=== PATIENT | male | born 1960 | race Caucasian/White ===

== ENCOUNTER 2020-11-08 20:32 | Emergency (ER) | payer OTHER ==
[2020-11-08] MEDS ORDERED: HYDROmorphone 1 MG/ML CARPUJECT IVP STA (20:55)
--- NOTE | 2020-11-08 20:58 | ED Physician Documentation ---
History of Present Illness - Stated complaint Stated Complaint: RT LEG INJ - Chief complaint Chief Complaint: Trauma Ext - Additonal information Additional information: 60-year-old male presents to the emergency department with acute right lower leg pain. He stepped off a bridge curb of about 5 to 6 inches slipped and twisted his leg. He has significant swelling without deformity of the right lower leg. Distal DP pulse is present. No history of previous injury to this leg. This gentleman denies any pertinent past medical history. No hypertension diabetes. Occasional smoker. Takes no routinely prescribed medications. Review of Systems Constitutional: reports: Reviewed and negative Ears: reports: Reviewed and negative Nose: reports: Reviewed and negative Throat: reports: Reviewed and negative Cardiac: reports: Reviewed and negative Respiratory: reports: Reviewed and negative GI: reports: Reviewed and negative : reports: Reviewed and negative Skin: reports: Reviewed and negative Musculoskeletal: reports: Extremity pain (right lower leg), Joint swelling (right lower leg) Neurologic: reports: Reviewed and negative PD PAST MEDICAL HISTORY - Past Medical History Past Medical History: Yes Cardiovascular: Hypertension - Past Surgical History General: Appendectomy, Other HEENT: Tonsil/Adenoidectomy - Present Medications Home Medications: Ambulatory Orders Medication Instructions Recorded Confirmed Oxycodone HCl/Acetaminophen 1 - 2 each PO Q6H PRN #14 tablet 11/08/20 [Percocet 5-325 mg Tablet] - Allergies Allergies/Adverse Reactions: Allergies Allergy/AdvReac Type Severity Reaction Status Date / Time No Known Drug Allergies Allergy Verified 11/08/20 20:34 - Social History Does the pt smoke?: No Smoking Status: Never smoker Does the pt drink ETOH?: Yes Does the pt have substance abuse?: No Substance Use and Type: Marijuana - Immunizations Immunizations are current?: No - POLST Patient has POLST: No PD ED PE EXPANDED - General General: Alert, In Pain - Cardiac Cardiac: Regular Rate, Radial strong equal, Pedal strong equal, Cap refill < 2 sec - Respiratory Respiratory: Clear to ausultation rene. No: Distress, Labored - Abdomen Abdomen: No: Tender to palpation - Extremities Extremities: Right leg (Significant swelling and ecchymosis of the right lower leg just above the bilateral malleolus. Significant laxity of the foot and ankle above the malleolous. 2+ DP pulse) Results - Vitals Vitals: Vital Signs - 24 hr 11/08/20 11/08/20 20:35 20:39 Temperature 37.2 C 37.2 C Heart Rate 90 90 Respiratory 16 16 Rate Blood Pressure 176/97 H 176/97 H O2 Saturation 99 99 Oxygen O2 Source Room air - Labs Labs: Laboratory Tests 11/08/20 11/08/20 21:00 21:00 WBC 11.1 H RBC 4.93 Hgb 14.9 Hct 44.4 MCV 90.1 MCH 30.2 MCHC 33.6 RDW 13.2 Plt Count 350 MPV 9.1 Neut # (Auto) 6.8 H Lymph # (Auto) 3.1 [place] # (Auto) 0.7 Eos # (Auto) 0.4 Baso # (Auto) 0.1 Absolute Nucleated RBC 0.00 Nucleated RBC % 0.0 Sodium 138 Potassium 3.2 L Chloride 100 L Carbon Dioxide 26 Anion Gap 12.0 BUN 14 Creatinine 1.1 Estimated GFR (MDRD) 69 L Glucose 108 H Calcium 9.2 Total Bilirubin 0.4 AST 31 ALT 33 Alkaline Phosphatase 76 Total Protein 8.0 Albumin 4.6 Globulin 3.4 Albumin/Globulin Ratio 1.4 Lipase 31 PD MEDICAL DECISION MAKING - ED course Complexity details: reviewed results, re-evaluated patient, d/w patient ED course: 60 -year-old male presents the emergency department with acute right leg injury. Unfortunately x-ray does show that he is got a nondisplaced right trimalleolar fracture. This case was discussed with on-call orthopedic Dr. Mccann. Kayleigh ent is placed in a 3 sided short leg splint. Post splinting he does have good perfusion and a warm foot. This gentleman was given a Percocet prepack as well as a prescription for Percocet to be filled tomorrow. He was advised to be nonweightbearing with the crutches. Patient is to call the orthopedic office tomorrow in the a.m. for prompt follow-up likely tomorrow or early Thursday. Emergent and worrisome return precautions for concerns of infection or compartment syndrome were discussed at length with the patient. Departure - Departure Disposition: 01 Home, Self Care Clinical Impression: Trimalleolar fracture of ankle, closed Qualifiers: Encounter type: initial encounter Laterality: right Qualified Code(s): S82.851A - Displaced trimalleolar fracture of right lower leg, initial encounter for closed fracture Condition: Stable Record reviewed to determine appropriate education?: Yes Instructions: Ankle Fx Follow-Up: [facility] [Provider Group] Prescriptions: Oxycodone HCl/Acetaminophen [Percocet 5-325 mg Tablet] 1 - 2 each PO Q6H PRN #14 tablet PRN Reason: pain Comments: The x-ray of your lower right leg shows that you do have what is called a trimalleolar fracture. This fracture will typically always require surgery though it does not need to be done tonight. You are to call the orthopedic office in [place] tomorrow morning at 8 AM in order to be seen with Dr. Hernandez. His goal is to see you Thursday or Thursday in office. If at any point you develop numbness or tingling in your toes develop a fever or have a cool foot please return to the ER to have your splint reevaluated. The splint cannot get wet, if it does get wet return to the ER to have it replaced. You arre to be 100% non weight bearing on the right leg. use the crutches at all times We have prescribed you some Percocet to help with pain control. Use sparingly as it can be addictive. It also will cause constipation. I recommend you increase your water intake as well as begin taking MiraLAX if you fail to have a bowel movement after 1 or [address] if taking Percocet it can legally intoxicated you and impair your ability to operate a vehicle.
[2020-11-08 21:07] LABS: BASOPHILS # (AUTO) 0.1 10^3/uL (0.0-0.1); BASOPHILS % (AUTO) 0.5 %; EOSINOPHILS # (AUTO) 0.4 10^3/uL (0.0-0.7); EOSINOPHILS % (AUTO) 3.6 %; HGB - HEMOGLOBIN 14.9 g/dL (14.0-18.0); LYMPHOCYTES # (AUTO) 3.1 10^3/uL (1.5-3.5); LYMPHOCYTES % (AUTO) 27.8 %; MEAN CORPUSCULAR HEMOGLOBIN 30.2 pg (27.0-31.0); MEAN CORPUSCULAR HGB CONC 33.6 g/dL (32.0-36.0); MEAN CORPUSCULAR VOLUME 90.1 fL (80.0-94.0); MEAN PLATELET VOLUME 9.1 fL (7.4-11.4); MONOCYTES # (AUTO) 0.7 10^3/uL (0.0-1.0); MONOCYTES % (AUTO) 6.6 %; NEUTROPHILS # (AUTO) 6.8 10^3/uL (1.5-6.6); NEUTROPHILS % (AUTO) 61.1 %; PLT - PLATELET COUNT 350 10^3/uL (130-450); RED BLOOD COUNT 4.93 10^6/uL (4.70-6.10); RED CELL DISTRIBUTION WIDTH 13.2 % (12.0-15.0); WHITE BLOOD COUNT 11.1 x10^3/uL (4.8-10.8)
[2020-11-08 21:22] LABS: ALBUMIN 4.6 g/dL (3.2-5.5); ALBUMIN/GLOBULIN RATIO 1.4 (1.0-2.2); BILIRUBIN,TOTAL 0.4 mg/dL (0.2-1.0); CALCIUM 9.2 mg/dL (8.5-10.3); CREATININE 1.1 mg/dL (0.6-1.2)
[2020-11-08] MEDS ORDERED: oxyCODONE/ACET 5/325 Prepack 4 PO STA (21:33)
--- NOTE | 2020-11-08 21:53 | XRAY Report ---
PROCEDURE: Ankle 3 View RT INDICATIONS: Fall; r/o fx TECHNIQUE: 3 views of the ankle were acquired. COMPARISON: None FINDINGS: Bones: Trimalleolar fracture involving the right ankle with oblique fracture of the distal fibula, tr ansverse fracture of the medial malleolus, and vertical fracture through the posterior malleolus. Ank le mortise demonstrates mild widening of the medial ankle gutter. There is overlying soft tissue swel ling. No suspicious bony lesions. Soft tissues: No tibiotalar joint effusion. Achilles tendon appears normal. IMPRESSION: Trimalleolar fracture with mild widening of the medial ankle mortise. Reviewed by: Kar Tavares MD on 11/08/2020 9:51 PM PST Approved by: Kar Tavares MD on 11/08/2020 9:51 PM PST Station ID: [id number]
[2020-11-08 22:23] VITALS: BP 152/82
== END 2020-11-08 22:21 | disposition home or self-care (01) ==
LOC: ED 20:32
DX: S82.854A Nondisplaced trimalleolar fracture of right lower leg, initial encounter for closed fracture (principal); X50.1XXA Overexertion from prolonged static or awkward postures, initial encounter; Y93.01 Activity, walking, marching and hiking; I10 Essential (primary) hypertension
CPT/HCPCS: 36415; 73610; 80053; 83690; 85025; 96374; 99283; 99284; J1170

== ENCOUNTER 2020-11-09 11:53 | Outpatient (CLI) | payer OTHER | END 2020-11-09 23:59 | disposition home or self-care (01) | LOC: LAB.R 11:53 | PROVIDERS: ATTEND Orthopaedic Surgery | DX: Z01.812 Encounter for preprocedural laboratory examination (principal); Z20.828 Contact with and (suspected) exposure to other viral communicable diseases ==

== ENCOUNTER 2020-11-14 10:54 | Day surgery (SDC) | payer OTHER ==
[~2020-11-14 10:54] MED LIST: ACETAMINOPHEN 1,000 MG/100 ML 100 ML IV ONE; CELECOXIB 100 MG CAPSULE PO ONE; ceFAZolin 2 GM/50 ML 2 GM/50 ML BAG IV ONE
[2020-11-14] MEDS ORDERED: LACTATED RINGERS 1,000 ML IV ONE ×2 (11:13→15:08)
[2020-11-14] MEDS ORDERED: MIDAZOLAM 2 MG/2 ML VIAL ONE (11:26)
[2020-11-14] MEDS ORDERED: fentaNYL 100 MCG/2 ML VIAL ONE (11:26)
[2020-11-14] MEDS ORDERED: PROPOFOL 200 MG/20 ML VIAL IVP ONE (11:27)
[2020-11-14] MEDS ORDERED: PROPOFOL 500 MG/50 ML 500 MG/50 ML VIAL ONE (11:28)
--- NOTE | 2020-11-14 11:50 | ANESTHESIA ---
Pre-Anesthesia VS, & Labs - Diagnosis ankle fracture - Procedure ORIF right ankle Vital Signs: Temp Pulse Resp BP Pulse Ox 36.2 C L 79 16 196/91 H 99 11/14/20 11:00 11/14/20 11:00 11/14/20 11:00 11/14/20 11:00 11/14/20 11:00 Height: 6 ft Weight (kg): 84.4 kg Body Mass Index: 25.2 BMI Classification: Overweight - NPO >8 hours - Lab Results Current Lab Results: Laboratory Tests 11/14/20 11:22: POC Whole Bld Glucose 94 Home Medications and Allergies Home Medications: Ambulatory Orders Docusate Sodium [Dulcolax Stool Softener] 200 mg PO BID 11/12/20 Docusate Sodium [Dulcolax Stool Softener] 200 mg PO BID 11/12/20 Allergies/Adverse Reactions: Allergies Allergy/AdvReac Type Severity Reaction Status Date / Time No Known Drug Allergies Allergy Verified 11/08/20 20:34 Anes History & Medical History - Anesthetic History Anesthesia Complications: reports: No previous complications - Medical History Cardiovascular: reports: Hypertension Pulmonary: reports: Sleep apnea, CPAP use Gastrointestinal: reports: None Urinary: reports: None Musculoskeletal: reports: None Skin: reports: Psoriasis, Other Smoking Status: Never smoker Psychosocial: reports: Cannabis (occasional) - Surgical History General: Appendectomy, Colonoscopy, Other Eyes Ears Nose Throat (EENT): Tonsil/Adenoidectomy Dermatologic: Skin cancer surgery Exam General: Alert Dental: WNL Mouth Opening: Greater than 4 Fingerbreadths Neck Mobility: Normal Mallampati classification: II Respiratory: Lungs clear Cardiovascular: Regular rate Mental/Cognitive Status: Alert/Oriented X3 Plan Anesthesia Type: General, Popliteal Block Consent for Procedure(s) Verified and Reviewed: Yes Code Status: Attempt Resuscitation ASA classification: 2-Mild systemic disease Is this case an emergency?: No
[2020-11-14] MEDS ORDERED: ONDANSETRON 4 MG/2 ML VIAL IVP PRN (11:51)
[2020-11-14] MEDS ORDERED: MORPHINE 2 MG/ML CARPUJECT IVP PRN (11:51)
[2020-11-14] MEDS ORDERED: fentaNYL 100 MCG/2 ML VIAL IVP PRN (11:51)
[2020-11-14] MEDS ORDERED: NALOXONE 0.4 MG/ML VIAL IVP PRN (11:51)
[2020-11-14] MEDS ORDERED: ATROPINE ABBOJECT 1 MG/10 ML SYRINGE IVP PRN (11:51)
[2020-11-14] MEDS ORDERED: HYDROmorphone 0.5 MG/0.5 ML SYRINGE IVP PRN (11:51)
[2020-11-14] MEDS ORDERED: ePHEDrine 50 MG/ML VIAL IVP PRN (11:51)
[2020-11-14] MEDS ORDERED: METOCLOPRAMIDE 10 MG/2 ML VIAL IVP PRN (11:51)
[2020-11-14] MEDS ORDERED: LACTATED RINGERS 1,000 ML IV SCH (12:00)
[2020-11-14] MEDS ORDERED: DEXAMETHASONE 10 MG/ML VIAL ONE (12:30)
[2020-11-14] MEDS ORDERED: KETOROLAC 30 MG/ML VIAL ONE (12:31)
[2020-11-14] MEDS ORDERED: KETAMINE 500 MG/10 ML VIAL ONE (14:00)
[2020-11-14] MEDS ORDERED: BACITRACIN ZINC OINT 14 GM TOP ONE (14:16)
[2020-11-14] MEDS ORDERED: BACITRACIN ZINC OINT 1 PACKET TOP ONE (14:22)
[2020-11-14] MEDS ORDERED: METOPROLOL 5 MG/5 ML VIAL IVP ONE (14:44)
[2020-11-14] MEDS ORDERED: HYDROcod/ACETAM 5/325 MG TABLET PO PRN (14:56)
[2020-11-14] MEDS ORDERED: HYDROcod/ACETAM 10 MG/325 MG TABLET PO PRN (14:56)
[2020-11-14] MEDS ORDERED: KETOROLAC 15 MG/ML VIAL IVP STA (14:56)
--- NOTE | 2020-11-14 14:59 | OPERATIVE REPORT ---
Operative Report - General Procedure Date: 11/14/20 Pre-Op Diagnosis: Displaced trimalleolar fracture right ankle Procedure Performed: Open reduction internal fixation medial and lateral malleolar I right ankle Post Op Diagnosis: Same as preoperative diagnosis - Procedure Note Primary Surgeon: Alvarez Mccann MD Secondary Surgeon: Federico AMAYA Anesthesia Provider: Jannet Wallace CRNA Anesthesia Technique: General ET tube, Regional block Estimated Blood Loss (mL): 25 Indications: 60-year-old man with a recent fall and twist to left ankle sustaining a closed, displaced trimalleolar fracture of his left ankle. He had isolated injury to left ankle with positive physical findings and radiographic. He has had routine x-rays and a CT scan. He has a transverse fracture of the medial malleolus at the joint line, old Bleich fracture of the lateral malleolus beginning at the ankle mortise and extending proximally and a small posterolateral posterior malleolus fracture left ankle. Findings: Displaced, unstable ankle mortise secondary to trimalleolar fracture left ankle. There is no obvious intra-articular abnormality noted through the medial arthrotomy. He did have a transverse fracture of the medial malleolus at the joint line. The fracture of the lateral malleolus began at the joint line extended proximally, long oblique fracture. The posterior malleolus fracture was a vertical fracture, relatively small and involve the posterolateral aspect of the posterior tibia Complications: None noted - Other Other Information/Narrative: After satisfactory anesthesia had been achieved, patient was placed in a supine position with a bolster beneath the right buttock to facilitate internal rotation of the right leg. A pneumatic tourniquet had been applied to the proxi mal right thigh over cast padding. The right lower extremity was prepped and draped in a sterile manner in the usual fashion with a padded bolster beneath the right leg. The C arm image intensifier was draped with a sterile drape and was used intermittently for biplanar imaging during the procedure. A timeout procedure was performed by the entire operating room team and all were in agreement. The right leg was exsanguinated with a rubber bandage. The pneumatic tourniquet was elevated 250 mmHg. The lateral ankle was approached first with a longitudinal incision over the posterior edge of the distal fibula and lateral malleolus. There is a fracture was mildly comminuted, long oblique fracture. The fracture was reduced with plantar flexion and internal rotation with the ankle being placed over a bolster to facilitate traction. A small bone clamp was applied to the fracture and a transfixing intramedullary K wire was inserted to help stabilize the fracture. The fracture seemed to have anatomic reduction. The [employer] posterior lateral 7 hole plate was applied to the fracture. Care was taken to protect the peroneal tendons as the plate was applied posteriorly in the distal part of the fracture and more laterally proximally. Cortical screws were inserted and seemed to have good purchase. A long intramedullary screw was inserted from the tip of the lateral malleolus and this measured approximately 65 mm. This intramedullary screw transfix the fracture site as well. A second incision was made over the medial malleolus. This was a longitudinal incision made anteromedially with care to protect the saphenous vein. A medial arthrotomy was performed. The fracture ends were clearly visualized and cleaned with a bone curette. The ankle mortise could be visualized. The fracture was reduced and temporarily held with a bone clamp. The pointed bone clamp was secured proximal to the fracture site through a small drill hole and distally as well. 2 K wires were inserted for cannulated screw fixation of the medial malleolus. These 2 screws were inserted and well seated. These 2 cancellous screws acted as lag screws and provided very good fixation to the medial malleolus. Intraoperative x-rays show good alignment of the ankle mortise. The stability of the syndesmosis was tested with a bone clamp and the external rotation stress test. There is no sign of abnormal laxity to the syndesmosis and therefore no formal fixation to the syndesmosis was performed. The posterior malleolus fracture fragment seemed to reduce anatomically with reduction of the medial and lateral malleoli. The tourniquet was deflated after 85 minutes. There was good return of circulation. Hemostasis was achieved electrocautery. The subcutaneous tissue was closed with 2-0 Vicryl to both incisions. Both incisions were closed with stainless steel trey. Bacitracin, Xeroform, sterile gauze, thick cotton and a sugar tong plaster splint was applied and secured with Juvenal wraps. The ankle was placed in neutral dorsiflexion. He received 2 g of Ancef intravenously and tolerated the procedure well. A physician assistant baseball coach was utilized to help retract, protect vital structures then to facilitate reduction of fractures.
--- NOTE | 2020-11-14 15:12 | ANESTHESIA POST OP EVALUATION ---
Anesthesia Post Eval - Post Anesthesia Eval Vitals: Last Vital Signs Temp 36.4 C L 11/14/20 14:48 Pulse 75 11/14/20 15:10 Resp 12 11/14/20 15:10 BP 158/96 H 11/14/20 15:10 Pulse Ox 97 11/14/20 15:10 CV Function Including HR & BP: positive: Stable Pain Control: positive: Satisfactory Nausea & Vomiting: positive: Negative Mental Status: positive: Baseline Respiratory Status: Airway Patent Hydration Status: Satisfactory Anesthesia Complications: positive: None (awake, alert, pleased with care.)
[2020-11-14] MEDS ORDERED: oxyCODONE 5 MG TABLET ONE (15:36)
[2020-11-14 15:46] VITALS: BP 151/84
--- NOTE | 2020-11-14 16:53 | XRAY Report ---
PROCEDURE: OR C-Arm Procedure INDICATIONS: orif right ankle TECHNIQUE: Single intraoperative image was provided for evaluation. COMPARISON: X-ray ankle 11/08/2020 FINDINGS: There has been ORIF of both the medial malleolus as well as distal fibula. There is good anatomic ali gnment and hardware appears intact. It is noted posterior malleoli or fracture was identified on x-ra y, although not as well appreciated on current exam on AP view. IMPRESSION: Bimalleolar fixation with posterior malleoli or fracture not well appreciated on AP image. Reviewed by: Rachel Moreno MD on 11/14/2020 4:51 PM PST Approved by: Rachel Moreno MD on 11/14/2020 4:51 PM PST Station ID: [id number]
== END 2020-11-14 10:55 | disposition home or self-care (01) ==
LOC: SDS 10:54
PROVIDERS: ATTEND Orthopaedic Surgery
DX: S82.851A Displaced trimalleolar fracture of right lower leg, initial encounter for closed fracture (principal); I10 Essential (primary) hypertension; G47.30 Sleep apnea, unspecified
CPT/HCPCS: 27822; A9270; C1713; J0131; J0690; J7120

== ENCOUNTER 2020-12-08 11:20 | Outpatient (CLI) | payer OTHER ==
[2020-12-08 13:33] LABS: BASOPHILS # (AUTO) 0.1 10^3/uL (0.0-0.1); BASOPHILS % (AUTO) 0.4 %; EOSINOPHILS # (AUTO) 0.3 10^3/uL (0.0-0.7); EOSINOPHILS % (AUTO) 2.3 %; HGB - HEMOGLOBIN 14.3 g/dL (14.0-18.0); LYMPHOCYTES % (AUTO) 15.4 %; MEAN CORPUSCULAR HEMOGLOBIN 29.6 pg (27.0-31.0); MEAN CORPUSCULAR HGB CONC 32.9 g/dL (32.0-36.0); MEAN CORPUSCULAR VOLUME 89.9 fL (80.0-94.0); MEAN PLATELET VOLUME 10.1 fL (7.4-11.4); MONOCYTES # (AUTO) 1.1 10^3/uL (0.0-1.0); MONOCYTES % (AUTO) 8.4 %; NEUTROPHILS # (AUTO) 9.5 10^3/uL (1.5-6.6); NEUTROPHILS % (AUTO) 73.1 %; PLT - PLATELET COUNT 428 10^3/uL (130-450); RED BLOOD COUNT 4.83 10^6/uL (4.70-6.10); RED CELL DISTRIBUTION WIDTH 13.2 % (12.0-15.0)
== END 2020-12-08 23:59 | disposition home or self-care (01) ==
LOC: LAB.N 11:20
PROVIDERS: ATTEND Physician Assistant Medical
DX: T81.49XA Infection following a procedure, other surgical site, initial encounter (principal); Z48.89 Encounter for other specified surgical aftercare
CPT/HCPCS: 36415; 85025; 87070; 87181; 87205

== ENCOUNTER 2020-12-27 15:46 | Outpatient (CLI) | payer OTHER ==
--- NOTE | 2020-12-27 17:14 | XRAY Report ---
PROCEDURE: Ankle 3 View RT INDICATIONS: FRACTURE OF RIGHT LOWER LEG TECHNIQUE: 3 views of the ankle were acquired. COMPARISON: 11/14/2020 and 11/08/2020 FINDINGS: Bones: Post-ORIF changes in distal fibular shaft, and medial malleolus are seen. Ankle alignment is a natomic. No gross hardware loosening or failure. Healing distal fibular shaft and medial malleolus fr actures are noted. No new fracture or dislocation. Ankle mortise is normally aligned. No suspicious bony lesions. Soft tissues: No tibiotalar joint effusion. Achilles tendon appears normal. IMPRESSION: Stable and anatomic ankle alignment. No gross hardware complication. No new fracture or dislocation. Reviewed by: Dipesh Richard MD on 12/27/2020 5:13 PM PST Approved by: Dipesh Richard MD on 12/27/2020 5:13 PM PST Station ID: [id number]
== END 2020-12-27 23:59 | disposition home or self-care (01) ==
LOC: DI.N 15:46
PROVIDERS: ATTEND Physician Assistant
DX: S82.831D Other fracture of upper and lower end of right fibula, subsequent encounter for closed fracture with routine healing (principal); S82.51XD Displaced fracture of medial malleolus of right tibia, subsequent encounter for closed fracture with routine healing

== ENCOUNTER 2021-02-11 08:00 | Outpatient (CLI) | payer OTHER ==
--- NOTE | 2021-02-11 15:32 | XRAY Report ---
PROCEDURE: Ankle 3 View RT INDICATIONS: TRIMALLEOLAR FRACTURE RIGHT LOWER LEG TECHNIQUE: 3 views of the ankle were acquired. COMPARISON: 12/27/2020 plain films FINDINGS: Bones: No fractures or dislocations. ORIF hardware within the distal tibia and fibula is present, a s before. Ankle mortise is normally aligned. No suspicious bony lesions. Soft tissues: No tibiotalar joint effusion. Achilles tendon appears normal. IMPRESSION: Postsurgical sequelae. Reviewed by: Jericho Escobar MD on 02/11/2021 3:31 PM PDT Approved by: Jericho Escobar MD on 02/11/2021 3:31 PM PDT Station ID: [id number]
== END 2021-02-11 23:59 | disposition home or self-care (01) ==
LOC: DI.N 08:00
PROVIDERS: ATTEND Orthopaedic Surgery
DX: S82.851D Displaced trimalleolar fracture of right lower leg, subsequent encounter for closed fracture with routine healing (principal)

== ENCOUNTER 2021-02-21 17:32 | Observation (INO) | payer OTHER ==
[2021-02-21] MEDS ORDERED: ONDANSETRON 4 MG/2 ML VIAL IVP PRN (17:40)
[2021-02-21] MEDS ORDERED: ACETAMINOPHEN 325 MG TABLET PO PRN (17:40)
[2021-02-21] MEDS ORDERED: SODIUM CHLORIDE FLUSH 0.9% 10 ML SYRINGE IVP PRN (17:40)
[2021-02-21] MEDS ORDERED: HYDROmorphone 1 MG/ML CARPUJECT IVP PRN (17:49)
[2021-02-21] MEDS ORDERED: oxyCODONE 5 MG TABLET PO PRN (17:49)
[2021-02-21] MEDS ORDERED: ceFAZolin 1 GM VIAL IVP SCH (18:00)
[2021-02-21 18:01] LABS: BASOPHILS # (AUTO) 0.1 10^3/uL (0.0-0.1); BASOPHILS % (AUTO) 0.8 %; EOSINOPHILS # (AUTO) 0.5 10^3/uL (0.0-0.7); EOSINOPHILS % (AUTO) 5.4 %; HCT - HEMATOCRIT 43.7 % (42.0-52.0); HGB - HEMOGLOBIN 14.5 g/dL (14.0-18.0); LYMPHOCYTES # (AUTO) 2.9 10^3/uL (1.5-3.5); LYMPHOCYTES % (AUTO) 28.7 %; MEAN CORPUSCULAR HEMOGLOBIN 29.4 pg (27.0-31.0); MEAN CORPUSCULAR HGB CONC 33.2 g/dL (32.0-36.0); MEAN CORPUSCULAR VOLUME 88.5 fL (80.0-94.0); MEAN PLATELET VOLUME 9.1 fL (7.4-11.4); MONOCYTES # (AUTO) 0.8 10^3/uL (0.0-1.0); MONOCYTES % (AUTO) 8.4 %; NEUTROPHILS # (AUTO) 5.6 10^3/uL (1.5-6.6); NEUTROPHILS % (AUTO) 56.3 %; PLT - PLATELET COUNT 408 10^3/uL (130-450); RED BLOOD COUNT 4.94 10^6/uL (4.70-6.10); RED CELL DISTRIBUTION WIDTH 13.6 % (12.0-15.0)
--- NOTE | 2021-02-21 18:01 | HISTORY & PHYSICAL EXAMINATION ---
HPI - Admitted From Admitted from: Direct admit - History Obtained From Records Reviewed: Other (discussed with Dr. Scotty Brice) History obtained from: Patient Exam limitations: No limitations - History of Present Illness Severity at the worst: reports: Mild, Moderate HPI Comment/Other: This is a 60-year-old man who sustained a closed, displaced trimalleolar frac ture of the right ankle in October 2020. His surgery was performed on 11/14/2020 within a week of injury. His surgery was performed at [facility] and involve open reduction internal fixation of both medial and lateral malleolar I of his right ankle. On the delayed basis, he developed some pressure and wound breakdown while in his boot over the lateral malleolar area distal to his plate. This has been treated with local wound care and has improved over the past couple of months but has resulted in small superficial sinus tracts along the plate more proximally and this is occurred within the past couple of weeks. The distal wound has healed; he had a wound VAC for short period time but most of the treatment has been in the wound clinic with Dr. Brice. His pain is minimal. He has no fever or chills but over the past few days he has noticed some mild redness and swelling. Drainage has been minimal over the superficial appearing wounds lateral right ankle but are directly over his previous surgical site where he had plate fixation of the distal right fibula and lateral malleolar area. The medial incision is healing very well and is had no signs of wound breakdown or infection. He is ambulating, full weightbearing on his right ankle. He does have stiffness to the right ankle. He has no history of diabetes, is a non-smoker. He has had a history of some skin problems in the past with dermatitis.He had a culture of the his wound on 02/14/[address] Brice and it was positive for Staph aureus, methicillin sensitive. Over the past few days he has been on Keflex PMH/PSH - Past Medical History Cardiovascular: positive: Hypertension Respiratory: positive: Sleep apnea, CPAP use GI: positive: None : positive: None HEENT: positive: Chronic vision loss Psych: positive: None Musculoskeletal: positive: None Derm: positive: Psoriasis, Other MRSA Hx?: No - Past Surgical History General: positive: Appendectomy, Colonoscopy, Other HEENT: positive: Tonsil/Adenoidectomy Derm: positive: Skin cancer surgery Social & Family Hx - Social History Does the pt smoke?: No Smoking Status: Never smoker Does the pt drink ETOH?: Yes Does the pt have substance abuse?: No - POLST Patient has POLST: No Meds/Allgy - Home Medications Home Medications: Ambulatory Orders Medication Instructions Recorded Confirmed Oxycodone HCl/Acetaminophen 1 - 2 each PO Q6H PRN #14 tablet 11/08/20 11/12/20 [Percocet 5-325 mg Tablet] Docusate Sodium [Dulcolax Stool 200 mg PO BID 11/12/20 11/12/20 Softener] oxyCODONE [Roxicodone] 5 mg PO Q4-6H #30 tablet 11/14/20 cephALEXin [Keflex] 500 mg PO TID 7 Days #21 cap 02/18/21 - Allergies Allergies/Adverse Reactions: Allergies Allergy/AdvReac Type Severity Reaction Status Date / Time No Known Drug Allergies Allergy Verified 11/08/20 20:34 Exam - Physical Exam General Appearance: positive: No acute distress Eyes Bilateral: positive: Normal inspection ENT: positive: ENT inspection nml Respiratory: positive: No respiratory distress Cardiovascular: positive: Regular rate & rhythm Peripheral Pulses: positive: 2+ Abdomen: positive: Non-tender Skin: positive: Warm, Dry Extremities: negative: Other (Right ankle shows mild swelling over the lateral ankle, mild redness about the lateral ankle, no tenderness or deformity. He does have some stiffness to his right ankle. The skin over the four separate 3mm sinuses that overlie the plate over fibula; no pus or drainage. No sign of abscess.) Neurologic/Psychiatric: positive: Oriented x3, Motor nml, Sensation nml Results - Diagnostic Imaging Results Diagnostic Imaging Results: negative: Read independently (I reviewed his last set of x-rays dated 02/12/2020 one of the right ankle. His trimalleolar fracture of the right ankle is healed and the internal fixation appears normal. The tibiotalar joint is maintained. The alignment of the right ankle looks good.) Impression/Plan - Problem List Problem List: 1. Infection associated with fibular plate right ankle; This is most likely related to wound healing problems. 2. Status post open reduction internal fixation trimalleolar fracture of right ankle Plan the patient's right ankle fracture is clinically and radiographically healed. However one of the incision is showing infection and inflammatory reaction about his fibular plate. The plan is admission under observation, elevation, intravenous antibiotics, plate removal from right fibula tomorrow. The plan is to discharge him to home following surgery. I have discussed the risk, goals and likelihood of achieving goals, alternatives to surgery, disability. There is a potential for persistent infection but removal of the plate should markedly help. He does not demonstrate signs of medial malleolar infection or infection about the tibiotalar joint. He is in agreement to the surgery and has signed informed consent. He will be admitted tonight and comanaged with our hospitalist
[2021-02-21 18:12] LABS: ALBUMIN 4.3 g/dL (3.2-5.5); ALBUMIN/GLOBULIN RATIO 1.2 (1.0-2.2); BILIRUBIN,TOTAL 0.3 mg/dL (0.2-1.0); CALCIUM 9.6 mg/dL (8.5-10.3); CREATININE 0.9 mg/dL (0.6-1.2); MAGNESIUM 2.4 mg/dL (1.7-2.8); POTASSIUM 4.5 mmol/L (3.5-5.0)
--- NOTE | 2021-02-21 18:13 | XRAY Report ---
PROCEDURE: Chest 1 View X-Ray INDICATIONS: Pre-op eval TECHNIQUE: 2 frontal views of the chest acquired. COMPARISON: None. FINDINGS: Surgical changes and devices: None. Lungs and pleura: No pleural effusions or pneumothorax. Lungs are clear. Mediastinum: Mediastinal contours appear normal. Heart size is normal. Bones and chest wall: No suspicious bony lesions. Overlying soft tissues appear unremarkable. IMPRESSION: No acute cardiopulmonary abnormality. Reviewed by: Javid Milan MD on 02/21/2021 5:12 PM AKDT Approved by: Javid Milan MD on 02/21/2021 5:12 PM AKDT Station ID: [id number]
--- NOTE | 2021-02-21 19:41 | HISTORY & PHYSICAL EXAMINATION ---
Chief Complaint - Chief Complaint Chief Complaint: right ankle surgical site redness and drain (plate infection) History of Present Illness - Admitted From Admitted From:: [facility] [place] - History Obtained From Records Reviewed: yes History obtained from: patient - History of Present Illness HPI Comment/Other: 60-year-old male with medical history significant for obstructive sleep apnea on CPAP and insomnia who presented as a direct admit [place] [facility] [place] with redness and drainage from a right ankle surgical wound site. Patient underwent right malleoli ankle fracture repair in October [address] Mccann. He has been following up with Dr Brice [place] [facility] [place]. He had a wound vac for a short period of time and also had wound cultures on 02/14/[address] Brice which were positive for MSSA. He has been on keflex for the past few days. The surgical site was noted to be draining and appeared erythematous. It was also evaluated by Dr Mccann today who suspects infection of hardware at the site. As a result the patient is being admitted for potential surgery tomorrow. Bedside he is resting comfortably. He denies chest pain, dyspnea. He has some chronic tenderness in the inguinal area bilaterally since inguinal hernia repair in February and March 2020. He denies nausea, vomiting, fever or chills. There is redness noted on the right ankle. Patient has extensive excuriations, patches of redness with dry/scaling skin over his body. He has been dealing with dermatitis for a while and sees a corporate security manager outpatient. History - Past Medical History Cardiovascular: reports: Hypertension Respiratory: reports: Sleep apnea, CPAP use Neuro: reports: None Endocrine/Autoimmune: reports: None GI: reports: None : reports: None HEENT: reports: Chronic vision loss Psych: reports: None Musculoskeletal: reports: None Derm: reports: Psoriasis, Other MRSA Hx?: No - Past Surgical History General: reports: Appendectomy, Colonoscopy, Other Ortho: reports: Other HEENT: reports: Tonsil/Adenoidectomy Derm: reports: Skin cancer surgery - Family & Social History Family History Comment/Other: mother from melanoma. father from compl ication following aortic valve repair Social History Notes: He lives at home with his . He does not use tobacco products. He reports using marijuana and drinks 3-4 beers daily. He denies any history of withdrawals. He is mainly independent of activities of daily living. He had been using crutches since his surgery but stopped using them 8 weeks ago. - POLST Patient has POLST: No POLST Status: Full Code Meds/Allgy - Home Medications Home Medications: Ambulatory Orders Medication Instructions Recorded Confirmed Oxycodone HCl/Acetaminophen 1 - 2 each PO Q6H PRN #14 tablet 11/08/20 11/12/20 [Percocet 5-325 mg Tablet] Docusate Sodium [Dulcolax Stool 200 mg PO BID 11/12/20 11/12/20 Softener] oxyCODONE [Roxicodone] 5 mg PO Q4-6H #30 tablet 11/14/20 cephALEXin [Keflex] 500 mg PO TID 7 Days #21 cap 02/18/21 - Allergies Allergies/Adverse Reactions: Allergies Allergy/AdvReac Type Severity Reaction Status Date / Time No Known Drug Allergies Allergy Verified 11/08/20 20:34 Review of Systems - Constitutional Constitutional: denies: Fever, Chills - Eyes Eyes: denies: Pain, Vision loss - Ears, Nose & Throat Ears, Nose & Throat: denies: Ear pain, Sore throat - Cardiovascular Cariovascular: denies: Irregular heart rate, Chest pain, Edema, Lightheadedness, Syncope, Exertional dyspnea - Respiratory Respiratory: denies: Cough, Sputum production, Wheezing, SOB at rest, SOB with exertion - Gastrointestinal Gastrointestinal: denies: Abdominal pain, Abdominal distention, Constipation, Diarrhea, Nausea, Vomiting - Genitourinary Genitourinary: denies: Dysuria, Frequency, Urgency, Hematuria - Musculoskeletal Musculoskeletal: denies: Muscle pain, Back pain, Muscle aches, Stiffness - Integumentary Integumentary: reports: Rash, Dryness - Neurological Neurological: denies: General weakness, Focal weakness, Headache - Psychiatric Psychiatric: denies: Depression, Anxiety - Endocrine Endocrine: denies: Polyuria, Polydypsia - Hematologic/Lymphatic Hematologic/Lymphatic: denies: Anemia, Bruising, Petechiae Prior Level of Functionality: Patient is independent of activities of daily living Exam - Physical Exam General Appearance: positive: No acute distress, Alert Eyes Bilateral: positive: PERRL, EOMI ENT: positive: No signs of dehydration Neck: positive: No JVD, Trachea midline Respiratory: positive: Chest non-tender, No respiratory distress, Breath sounds nml. negative: Wheezes, Rales, Rhonchi Cardiovascular: positive: Regular rate & rhythm, No murmur Abdomen: positive: Non-tender, No organomegaly, Nml bowel sounds, No distention. negative: Guarding, Rebound Back: positive: Nml inspection Skin: positive: Dry, Skin rash Extremities: positive: Other (right ankle redness. 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 Mccann plans for surgery in the morning. N.p.o. after midnight. Wound cultures on 02/14/21 grew MSSA. Patient was on keflex Cefazolin 2g IV administered Qualifiers: Encounter type: initial encounter Qualified Code(s): T84.7XXA - Infection and inflammatory reaction due to other internal orthopedic prosthetic devices, implants and grafts, initial encounter (2) Pre-op evaluation Conclusion/Plan: Patient's risk for a serious complication or any complication 1.4 and 1.8% respectively. T his is significantly less than the average risk of 2.7 and 3.4% respectively. Predicted length of hospital stay is 1 day. Patient is medically optimized for surgery. (3) DEJA on CPAP Conclusion/Plan: Patient to continue using CPAP at home setting (4) Dermatitis Conclusion/Plan: Patient sees a corporate security manager outpatient Suspect psoariasis. Patient to follow up with PCP for referral to rheumatology. He is aware and working on it. It would need approval in the [employer] system. (5) Insomnia Conclusion/Plan: On melatonin - Lab Results Fish Bones: 02/21/21 17:56 02/21/21 17:56 Core Measures - Anticipated LOS I expect patient to be DC'd or transferred within 96 hours.: Yes - DVT/VTE - Prophylaxis VTE/DVT Device ordered at admit?: Yes VTE/DVT Prophylaxis med ordered at admit?: Yes
[2021-02-21] MEDS: ceFAZolin 2 GM/50 ML 2 GM/50 ML BAG IV SCH (19:42)
[2021-02-21] MEDS: SODIUM CHLORIDE 0.9% 1,000 ML IV SCH (19:42)
[2021-02-21 20:50] LABS: B. PARAPERTUSSIS- RESP PCR PAN NOT DETECTED; B. PERTUSSIS- RESP PCR PANEL NOT DETECTED; C. PNEUMONIAE- RESP PCR PANEL NOT DETECTED; CORONAVIRUS 229E-RESP PCR NOT DETECTED; CORONAVIRUS HKU1-RESP PCR NOT DETECTED; CORONAVIRUS NL63-RESP PCR NOT DETECTED; CORONAVIRUS OC43-RESP PCR NOT DETECTED; HUMAN METAPNEUMOVIRUS NOT DETECTED; INFLUENZA A- RESP PCR PANEL NOT DETECTED; INFLUENZA B - RESP PCR PANEL NOT DETECTED; M. PNEUMONIAE- RESP PCR PANEL NOT DETECTED; PARAINFLUENZA VIRUS 1 NOT DETECTED; PARAINFLUENZA VIRUS 2 NOT DETECTED; PARAINFLUENZA VIRUS 3 NOT DETECTED; PARAINFLUENZA VIRUS 4 NOT DETECTED; RHINOVIRUS/ENTEROVIRUS NOT DETECTED; RSV- RESP PCR PANEL NOT DETECTED; SARS-CoV-2 -RESP PCR PANEL NOT DETECTED
[2021-02-21] MEDS: FAMOTIDINE 20 MG TABLET PO SCH (20:56)
[2021-02-21] MEDS: SODIUM CHLORIDE FLUSH 0.9% 10 ML SYRINGE IVP SCH (23:55)
[2021-02-22] MEDS: ceFAZolin 2 GM/50 ML 2 GM/50 ML BAG IV SCH ×2 (01:31→08:11)
[2021-02-22] MEDS: FAMOTIDINE 20 MG TABLET PO SCH (08:11)
[2021-02-22] MEDS: SODIUM CHLORIDE 0.9% 1,000 ML IV SCH (08:11)
[2021-02-22] MEDS: SODIUM CHLORIDE FLUSH 0.9% 10 ML SYRINGE IVP SCH (08:12)
--- NOTE | 2021-02-22 09:09 | ANESTHESIA ---
Pre-Anesthesia VS, & Labs - Diagnosis infected hardware R ankle - Procedure R ankle I&D, removal of infected hardware Vital Signs: Temp Pulse Resp BP Pulse Ox 36.5 C 68 18 138/80 H 98 02/22/21 07:44 02/22/21 07:44 02/22/21 07:44 02/22/21 07:44 02/22/21 07:44 Height: 6 ft Weight (kg): 81.5 kg Body Mass Index: 24.3 BMI Classification: Healthy weight - NPO >8 hours - Lab Results Current Lab Results: Laboratory Tests 02/21/21 17:56: Sodium 138, Potassium 4.5, Chloride 103, Carbon Dioxide 28, Anion Gap 7.0, BUN 18, Creatinine 0.9, Estimated GFR (MDRD) 87 L, Glucose 95, Calcium 9.6, Magnesium 2.4, Total Bilirubin 0.3, AST 22, ALT 27, Alkaline Phosphatase 85, Total Protein 8.0, Albumin 4.3, Globulin 3.7, Albumin/Globulin Ratio 1.2 02/21/21 17:56: WBC 10.0, RBC 4.94, Hgb 14.5, Hct 43.7, MCV 88.5, MCH 29.4, MCHC 33.2, RDW 13.6, Plt Count 408, MPV 9.1, Neut # (Auto) 5.6, Lymph # (Auto) 2.9, [place] # (Auto) 0.8, Eos # (Auto) 0.5, Baso # (Auto) 0.1, Absolute Nucleated RBC 0.00, Nucleated RBC % 0.0 Fish Bones: 02/21/21 17:56 02/21/21 17:56 Home Medications and Allergies Active Medications Acetaminophen (Acetaminophen 325 Mg Tablet) 650 mg PO Q4HR PRN PRN Reason: Pain 1 to 4 Last Admin: 02/21/21 20:56 Dose: 650 mg Documented by: Famotidine (Famotidine 20 Mg Tablet) 20 mg PO BID [facility] Last Admin: 02/22/21 08:11 Dose: 20 mg Documented by: Hydromorphone HCl (Hydromorphone 1 Mg/Ml Carpuject) 1 mg IVP Q3HR PRN PRN Reason: Severe Pain Sodium Chloride (Normal Saline 0.9%) 1,000 mls @ 83.33 mls/hr IV .Q12H1M [facility] Last Admin: 02/22/21 08:11 Dose: 83.3 mls/hr Documented by: Cefazolin Sodium/Dextrose (Ancef 2 Gm/50 Ml) 2 gm in 50 mls @ 100 mls/hr IV Q8H [facility] Last Infusion: 02/22/21 08:48 Dose: Infused Documented by: Ondansetron HCl (Ondansetron 4 Mg/2 Ml Vial) 4 mg IVP Q6HR PRN PRN Reason: Nausea / Vomiting Oxycodone HCl (Oxycodone 5 Mg Tablet) 5 mg PO Q4HR PRN PRN Reason: PAIN 5-7 Sodium Chloride (Sodium Chloride Flush 0.9% 10 Ml Syringe) 10 ml IVP PRN PRN PRN Reason: NEEDED PER PROVIDER ORDERS Sodium Chloride (Sodium Chloride Flush 0.9% 10 Ml Syringe) 10 ml IVP 0100,0900,1700 [facility] Last Admin: 02/22/21 08:12 Dose: Not Given Documented by: Docusate Sodium [Dulcolax Stool Softener] 200 mg PO BID 11/12/20 Allergies/Adverse Reactions: Allergies Allergy/AdvReac Type Severity Reaction Status Date / Time No Known Drug Allergies Allergy Verified 11/08/20 20:34 Anes History & Medical History - Anesthetic History Anesthesia Complications: reports: No previous complications Family history of Anesthesia Complications: Denies Family history of Malignant Hyperthermia: Denies - Medical History Cardiovascular: reports: Hypertension Pulmonary: reports: Sleep apnea, CPAP use Gastrointestinal: reports: None Urinary: reports: None Neuro: reports: None Musculoskeletal: reports: None Endocrine/Autoimmune: reports: None Blood Disorders: reports: None Skin: reports: Psoriasis, Other Smoking Status: Never smoker - Surgical History General: reports: Appendectomy, Colonoscopy, Other Eyes Ears Nose Throat (EENT): reports: Tonsil/Adenoidectomy Orthopedic: reports: Other Dermatologic: reports: Skin cancer surgery Exam General: Alert, Oriented x3, Cooperative Dental: WNL Mouth Openin Fingerbreadth Neck Mobility: Normal Mallampati classification: II Thyromental Distance: 4-6 cm Respiratory: Lungs clear Cardiovascular: Regular rate Abdomen: Normal bowel sounds Extremities: No clubbing Neurological: Normal gait Mental/Cognitive Status: Alert/Oriented X3 Cognitive Status: Within normal limits Plan Anesthesia Type: General, Popliteal Block Regional Block: Per Surgeon's request for Post Op pain control Consent for Procedure(s) Verified and Reviewed: Yes Code Status: Attempt Resuscitation ASA classification: 2-Mild systemic disease Is this case an emergency?: Yes
[2021-02-22] MEDS ORDERED: NALOXONE 0.4 MG/ML VIAL IVP PRN (09:11)
[2021-02-22] MEDS ORDERED: fentaNYL 100 MCG/2 ML VIAL IVP PRN (09:11)
[2021-02-22] MEDS ORDERED: METOCLOPRAMIDE 10 MG/2 ML VIAL IVP PRN (09:11)
[2021-02-22] MEDS ORDERED: ATROPINE ABBOJECT 1 MG/10 ML SYRINGE IVP PRN (09:11)
[2021-02-22] MEDS ORDERED: ePHEDrine 50 MG/ML VIAL IVP PRN (09:11)
[2021-02-22] MEDS ORDERED: HYDROmorphone 0.5 MG/0.5 ML SYRINGE IVP PRN (09:11)
[2021-02-22] MEDS ORDERED: MORPHINE 2 MG/ML CARPUJECT IVP PRN (09:11)
[2021-02-22] MEDS ORDERED: ONDANSETRON 4 MG/2 ML VIAL IVP PRN (09:11)
[2021-02-22] MEDS ORDERED: LACTATED RINGERS 1,000 ML IV SCH (10:00)
--- NOTE | 2021-02-22 11:27 | PHARMACY PROGRESS NOTE ---
- Best Possible Medication History Admit Date and Time: 02/21/21 1735 Processed by: Pharmacy Medication History completed: Yes Patient Interview: Completed Secondary Source(s): Pharmacy records, Insurance records As the person ultimately responsible for medication therapy, providers are able to order a medication from an existing home medication list in [facility] via the "Reconcile Routine" prior to Confirmation of that medication by manager support. Such practice is discouraged except when the physician, in their clinical judgment, deems that a medical need exists for a medication without regard to previous use.
[2021-02-22] MEDS ORDERED: BUPIVACAINE 0.25% PF 30 ML VIAL ONE (12:10)
[2021-02-22] MEDS ORDERED: PROPOFOL 200 MG/20 ML VIAL IVP ONE ×2 (12:24→14:18)
[2021-02-22] MEDS ORDERED: ROPIVACAINE 0.5% PF 20 ML AMPULE ONE ×2 (12:24→12:37)
[2021-02-22] MEDS ORDERED: KETOROLAC 30 MG/ML VIAL ONE (12:24)
[2021-02-22] MEDS ORDERED: DEXAMETHASONE 4 MG/ML VIAL ONE (12:24)
[2021-02-22] MEDS ORDERED: MIDAZOLAM 2 MG/2 ML VIAL ONE (12:26)
[2021-02-22] MEDS ORDERED: VANCOMYCIN 1 GM VIAL IV ONE ×2 (13:05)
[2021-02-22] MEDS ORDERED: ceFAZolin 1 GM VIAL ONE (13:09)
[2021-02-22] MEDS ORDERED: VANCOMYCIN 1 GM VIAL ONE ×2 (13:14→14:01)
--- NOTE | 2021-02-22 14:35 | OPERATIVE REPORT ---
Operative Report - General Admit Date: 02/21/21 Procedure Date: 02/22/21 Planned Procedure: Removal of internal fixation right fibula Pre-Op Diagnosis: Infection and inflammatory reaction surrounding internal fixation right fib Procedure Performed: Removal of internal fixation right fibula Post Op Diagnosis: Same as preoperative diagnosis - Procedure Note Primary Surgeon: Alvarez Mccann MD Anesthesia Provider: Sakshi Sabillon CRNA Anesthesia Technique: General ET tube, Regional block Estimated Blood Loss (mL): 20 Indications: This is a gentleman who sustained a displaced trimalleolar fracture of his right ankle in October 2020. He underwent open reduction internal fixation of his medial and lateral malleolar I involving his right ankle on about 11/14/2020. He developed some wound superficial breakdown to the lateral incision distal to his plate in the perioperative. And this has been treated with local wound care included temporary wound VAC. He has developed signs of infection inflammation. The signs of infection are mild, appear mostly superficial but difficult to exclude deep to bone. Based on x-rays and surgical findings, there is no sign of osteomyelitis. Does not seem to have risk factors for healing other than he has a chronic dermatitis to most of his body which may predispose him to wound healing difficulties. He had three of four very small sinuses overlying the plate. There is no sign of abscess, scant drainage from these small wounds about the lateral incision. The more distal incision area of concern has fully healed with wound care about the lateral right ankle Findings: His fracture was fully united to fibula. The preoperative x-rays suggested the same. I did not see any sign of deep infection and no sign of any osteomyelitis to screw holes or to any portion of the fibula in the vicinity of the plate and screws. Complications: None noted - Other Other Information/Narrative: The patient was brought to the operating room, given a general endotracheal anesthetic and a popliteal block was performed. The right leg was prepped and draped in a sterile manner in the usual fashion. A pneumatic tourniquet was applied to the proximal right thigh over cast padding. A foam leg bolster was applied to the operating room table. A timeout procedure was performed by the entire operating room team and all were in agreement. The patient received a 2 g of Ancef and had been receiving Ancef overnight since admission yesterday evening. The right leg was exsanguinated by elevation. The pneumatic tourni quet was elevated 250 mmHg. The previous lateral longitudinal incision was carried down directly to bone. Full thickness skin flaps were carefully developed releasing scar tissue to help allow mobilization and exposure of the posterior lateral fibular plate. The peroneal tendons were protected. The plate was exposed and the screws were removed proximally and distally. The plate was easily removed. The distal intramedullary screw also was exposed at the tip of the lateral malleolus and removed. The bone was gently debrided with a curette including the screw holes. Saline lavage was performed. Intraoperative cultures had been obtained but the fluid did not appear purulent and was mostly bloody. None of the internal fixation was loose. The pneumatic tourniquet was deflated after 44 minutes. Hemostasis was achieved with electrocautery. 2 g of vancomycin powder were placed over the fibula. No deep sutures were inserted. The skin was closed with 2-0 nylon vertical mattress int errupted sutures and then stainless steel trey to the skin edges. The skin edges approximated well. Xeroform, bacitracin, sterile gauze, cast padding and a well-padded short leg posterior fiberglass splint was applied to the right leg with the right ankle in neutral dorsiflexion. The patient tolerated procedure well
[2021-02-22] MEDS ORDERED: HYDROcod/ACETAM 5/325 MG TABLET PO PRN (14:45)
[2021-02-22] MEDS ORDERED: HYDROcod/ACETAM 10 MG/325 MG TABLET PO PRN (14:45)
--- NOTE | 2021-02-22 14:58 | ANESTHESIA POST OP EVALUATION ---
Anesthesia Post Eval - Post Anesthesia Eval Vitals: Last Vital Signs Temp 36.2 C L 02/22/21 14:24 Pulse 72 02/22/21 14:50 Resp 17 02/22/21 14:50 BP 165/79 H 02/22/21 14:50 Pulse Ox 100 02/22/21 14:50 CV Function Including HR & BP: positive: Stable Pain Control: positive: Satisfactory Nausea & Vomiting: positive: Negative Mental Status: positive: Baseline Respiratory Status: Airway Patent Hydration Status: Satisfactory Anesthesia Complications: positive: None
--- NOTE | 2021-02-22 15:31 | Discharge Plan ---
Discharge Plan Problem Reviewed?: Yes Disposition: Home, Self Care Condition: Good Prescriptions: oxyCODONE [Roxicodone] 5 mg PO Q4-6H #15 tablet Diet: Regular Activity Restrictions: non weight bearing right Shower Restrictions: Yes (keep dressing dry) Driving Restrictions: Yes Assistance Devices: Crutches Weight Bearing: No Weight (elevate right leg) Plan of Treatment: tylenol and ibuprofen for routine medications; oxycodone only if pain is not controlled Care Goals: see in clinic next week Additional Instructions or Follow Up instructions: do not remove splint from right leg No Smoking: If you smoke, Please STOP! Call for help. Follow-up with: Alvarez Mccann MD [Provider Admit Priv/Credential] -
--- NOTE | 2021-02-22 15:46 | DISCHARGE SUMMARY ---
Discharge Summary Admit Date: 02/21/21 Discharge Date: 02/22/21 Discharging Provider: Dr Asya Duncan (Hospitalist), Dr Alvarez Mccann (Ortho) Primary Care Provider: Dr Zachariah Mccarthy Code Status: Attempt Resuscitation Condition at Discharge: Good Discharge Disposition: 01 Home, Self Care - HPI History of Present Illness: From the admission H&P of Dr Christy Fitzgeraldu: This is a 60-year-old white male with medical history significant for obstructive sleep apnea on CPAP and insomnia who presented as a direct admit from the [facility] [place] wound clinic with redness and drainage from a right ankle surgical wound site. Patient underwent right malleoli ankle fracture repair in October [address] Mccann. He has been following up with Dr Brice at the [facility] [place] clinic for wound care. He had a wound vac for a short period of time and also had wound cultures on 02/14/[address] Brice which were positive for MSSA. He has been on keflex for the past few days. The surgical site was noted to be draining and appeared erythematous. It was also evaluated by Dr Mccann today who suspects infection of hardware at the site. As a result the patient is being admitted for ankle s urgery tomorrow. Bedside he is resting comfortably. He denies chest pain, dyspnea. He has some chronic tenderness in the inguinal area bilaterally since inguinal hernia repair in February and March 2020. He denies nausea, vomiting, fever or chills. There is redness noted on the right ankle. Patient has extensive excoriations, patches of redness with dry/scaling skin over his body. He has been dealing with dermatitis for a while and sees a freelance art director outpatient. 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 He was started on Cefazolin 2g IV q8h. The patient underwent surgery on 02/22/21, and had successful removal of internal fixation, right fibula, for an infection and inflammatory reaction surrounding the internal fixation of the right fibula. He was prescribed narcotics for pain relief after discharge. He is to see Dr Ciro olivera in 1 week in the Ortho clinic. (2) DEJA on CPAP Patient was continued on his CPAP at his home settings. (3) Dermatitis Suspect psoariasis. Patient sees a Florist Manager as an outpatient. Patient to follow up with PCP for referral to Rheumatology. It would need approval in the [employer] system. (4) Insomnia His home med of Melatonin was ordered to use here. - ALLERGIES Allergies/Adverse Reactions: Allergies Allergy/AdvReac Type Severity Reaction Status Date / Time No Known Drug Allergies Allergy Verified 11/08/20 20:34 - MEDICATIONS Home Medications: Ambulatory Orders Medication Instructions Recorded Confirmed cephALEXin [Keflex] 500 mg PO TID 7 Days #21 cap 02/18/21 02/22/21 Ibuprofen 600 mg PO QPM 02/22/21 02/22/21 Triamcinolone Acetonide 0.1% 1 applic TOP BID 02/22/21 02/22/21 [Triamcinolone Acetonide] oxyCODONE [Roxicodone] 5 mg PO Q4-6H #15 tablet 02/22/21 - PHYSICAL EXAM AT DISCHARGE General Appearance: positive: No acute distress Eyes Bilateral: positive: Normal inspection, EOMI ENT: positive: ENT inspection nml, No signs of dehydration Neck: positive: Nml inspection, No JVD Respiratory: positive: No respiratory distress Cardiovascular: positive: Regular rate & rhythm Abdomen: positive: Non-tender, No distention Skin: positive: Warm, Dry Extremities: positive: No pedal edema, Other (R ankle wrapped) - LABS Result Diagrams: 02/21/21 17:56 02/21/21 17:56 - FOLLOW UP Follow Up: See Dr Reese of Orthopedics in 1 week. - TIME SPENT Time Spent in Discharge (Minutes): 20
[2021-02-22 17:30] VITALS: BP 152/83
== END 2021-02-22 17:20 | disposition home or self-care (01) ==
LOC: MS2 17:32
PROVIDERS: ADMIT Orthopaedic Surgery; ATTEND Orthopaedic Surgery
DX: T84.624A Infection and inflammatory reaction due to internal fixation device of right fibula, initial encounter (principal); B95.61 Methicillin susceptible Staphylococcus aureus infection as the cause of diseases classified elsewhere; Y79.3 Surgical instruments, materials and orthopedic devices (including sutures) associated with adverse incidents; Y92.234 Operating room of hospital as the place of occurrence of the external cause; G47.33 Obstructive sleep apnea (adult) (pediatric); L40.9 Psoriasis, unspecified; G47.00 Insomnia, unspecified; H54.7 Unspecified visual loss; Z79.1 Long term (current) use of non-steroidal anti-inflammatories (NSAID); Z79.899 Other long term (current) drug therapy; Z20.822 Contact with and (suspected) exposure to COVID-19; L97.316 Non-pressure chronic ulcer of right ankle with bone involvement without evidence of necrosis
CPT/HCPCS: 0202U; 11043; 20680; 36415; 71045; 80053; 83735; 85025; 87070; 87075; 87181; 87205; 93005; 96365; 96366; 99214; A9270; G0378; J0690; J3370

== ENCOUNTER 2021-04-08 11:48 | Outpatient (CLI) | payer OTHER | END 2021-04-08 23:59 | LOC: LAB 11:48 | PROVIDERS: ATTEND Orthopaedic Surgery | DX: T81.31XS Disruption of external operation (surgical) wound, not elsewhere classified, sequela (principal) | CPT/HCPCS: 87070; 87075; 87181; 87205 ==

== ENCOUNTER 2021-04-11 08:14 | Outpatient (CLI) | payer OTHER ==
--- NOTE | 2021-04-11 10:21 | XRAY Report ---
PROCEDURE: Ankle 3 View RT INDICATIONS: RIGHT ANKLE PAIN TECHNIQUE: 3 views of the ankle were acquired. COMPARISON: 02/11/2021 plain films FINDINGS: Bones: Mildly displaced recent appearing fracture of the distal fibular diaphysis. Instrumentation tr acks within the distal tibia are present with removal of prior hardware. Ankle mortise is normally al igned. No suspicious bony lesions. Screws within the medial malleolus are present. Soft tissues: No tibiotalar joint effusion. Achilles tendon appears normal. IMPRESSION: 1. Removal of prior distal fibular hardware. 2. Acute appearing mildly displaced oblique fracture of distal fibula. Reviewed by: Jericho Escobar MD on 04/11/2021 10:20 AM PDT Approved by: Jericho Escobar MD on 04/11/2021 10:20 AM PDT Station ID: [id number]
== END 2021-04-11 08:15 | disposition home or self-care (01) ==
LOC: DI.N 08:14
PROVIDERS: ATTEND Orthopaedic Surgery
DX: S82.831A Other fracture of upper and lower end of right fibula, initial encounter for closed fracture (principal); T81.31XS Disruption of external operation (surgical) wound, not elsewhere classified, sequela
CPT/HCPCS: 87070; 87181; 87205

== ENCOUNTER 2021-05-27 19:45 | Outpatient (CLI) | payer OTHER ==
--- NOTE | 2021-05-27 12:01 | XRAY Report ---
PROCEDURE: Ankle 3 View RT INDICATIONS: DISRUPTION OF EXTERNAL OPERATION WOUND TECHNIQUE: 3 views of the ankle were acquired. COMPARISON: 04/11/2021 FINDINGS: Bones: Sequela of prior ORIF of lateral medial malleolar fracture stable compared to prior exam. Mil dly displaced fracture of the distal fibula is stable compared to 04/11/2021. Ankle mortise is normall y aligned. No suspicious bony lesions. Soft tissues: No tibiotalar joint effusion. Achilles tendon appears normal. IMPRESSION: 1. Redemonstration of distal right fibular fracture. 2. Stable postsurgical changes. Reviewed by: Abbey Major MD, PhD on 05/27/2021 11:59 AM PDT Approved by: Abbey Major MD, PhD on 05/27/2021 11:59 AM PDT Station ID: [id number]
== END 2021-05-27 19:46 | disposition home or self-care (01) ==
LOC: DI.N 19:45
PROVIDERS: ATTEND Orthopaedic Surgery
DX: T81.31XS Disruption of external operation (surgical) wound, not elsewhere classified, sequela (principal); S82.831A Other fracture of upper and lower end of right fibula, initial encounter for closed fracture

== ENCOUNTER 2021-07-25 07:30 | Outpatient (CLI) | payer OTHER ==
--- NOTE | 2021-07-25 16:05 | XRAY Report ---
PROCEDURE: Ankle 3 View RT INDICATIONS: DISPLACED TRIMALLEOLAR FX OF R LOWER LEG TECHNIQUE: 3 views of the ankle were acquired. COMPARISON: None FINDINGS: Bones: No fractures or dislocations. There are 2 screws within the right medial malleolus. Answer me ntation tracks within the right distal tibia and fibula are present. Mild periarticular osteophyte fo rmation at the right tibiotalar joint. Ankle mortise is normally aligned. No suspicious bony lesions . There is mild chronic fracture deformity of the posterior malleolus, and distal fibula. Soft tissues: No tibiotalar joint effusion. Achilles tendon appears normal. IMPRESSION: Postsurgical sequelae. Chronic fracture deformity. No acute fracture. No osseous lesion. If symptoms and/or clinical suspicion for pathology continue, further assessment with repeat plain f ilms, or advanced imaging (e.g., CT, MRI, or bone scan) is recommended for further assessment. Reviewed by: Jericho Escobar MD on 07/25/2021 4:04 PM PDT Approved by: Jericho Escobar MD on 07/25/2021 4:04 PM PDT Station ID: [id number]
== END 2021-07-25 23:59 | disposition home or self-care (01) ==
LOC: DI.N 07:30
PROVIDERS: ATTEND Orthopaedic Surgery
DX: S82.51XD Displaced fracture of medial malleolus of right tibia, subsequent encounter for closed fracture with routine healing (principal)

== ENCOUNTER 2023-03-21 17:03 | Emergency (ER) | payer OTHER ==
[2023-03-21] MEDS ORDERED: ceFAZolin 1 GM in SODIUM CHLORIDE 0.9% MINIBAG 100 ML IV STA (17:47)
[2023-03-21] MEDS ORDERED: ceFAZolin 1 GM VIAL ONE (17:53)
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
[2023-03-21 18:45] VITALS: BP 142/84
== END 2023-03-21 19:05 | disposition short-term general hospital (02) ==
LOC: ED 17:03
DX: S31.31XA Laceration without foreign body of scrotum and testes, initial encounter (principal); X58.XXXA Exposure to other specified factors, initial encounter
CPT/HCPCS: 96365; 99284